=== PATIENT | female | born 1955 | race Caucasian/White ===

== ENCOUNTER 2018-02-09 17:42 | Emergency (ER) | payer MEDICAID, MEDICARE ==
--- NOTE | 2018-02-09 18:25 | ED Physician Documentation ---
PD HPI FOCAL NEURO - Stated complaint Stated Complaint: VISUAL CHANGES/DIZZY/UNBALANCED - Chief complaint Chief Complaint: Heent - History obtained from History obtained from: Patient - History of Present Illness Timing - onset: How many days ago (she has had few days of feeling off balance, dizziness, and some blurred vision. No loss of vision. No focal weaknesses. She is also having intermittent feelings of heart going fast with lightheadedness. No syncopal episodes per se. The lightheaded feelings last just few minutes at a time. They are not patterned with the dizziness times.) Timing - duration: Days (for the dizziness/vertigo feeling), Weeks (for the epiosdes of lightheaded/fast heartrate.) Timing - details: Abrupt onset, Now resolved, Intermittant Severity of deficit: Moderate Weakness: No: Face, Arm Numbness: No: Face, Arm Associated symptoms: Other (feeling of off balance and spinning/but not distinct vertigo per se.). No: Headache, Nausea / vomiting Contributing factors: negative: Anticoagulated, Vascular dz, Atrial fibrillation Baseline status: positive: A&OX3, ambulatory, indep Similar symptoms before: Has not had sx before Recently seen: Not recently seen Review of Systems Constitutional: denies: Fever, Chills Eyes: denies: Loss of vision, Decreased vision, Photophobia Ears: denies: Loss of hearing (but feels that her hearing is diminished.), Ear pain, Drainage/discharge Nose: denies: Rhinorrhea / runny nose, Congestion Cardiac: reports: Palpitations (feeling heart rate going fast about 130s, and she attributed it to anxiety from the symptoms.). denies: Chest pain / pressure PD PAST MEDICAL HISTORY - Past Medical History Past Medical History: No Cardiovascular: None Respiratory: None Neuro: None Endocrine/Autoimmune: None - Past Surgical History Past Surgical History: No - Present Medications Home Medications: Ambulatory Orders Medication Instructions Recorded Confirmed Cetirizine [ZyrTEC] 10 mg PO DAILY #20 tablet 02/09/18 Dexamethasone [Decadron] 4 mg PO DAILY #5 tablet 02/09/18 Meclizine [Antivert] 25 mg PO Q6H PRN #30 tablet 02/09/18 - Allergies Allergies/Adverse Reactions: Allergies Allergy/AdvReac Type Severity Reaction Status Date / Time codeine Allergy Unknown Verified 02/09/18 17:51 - Living Situation Living Situation: reports: With family Living Arrangement: reports: At home - Social History Does the pt smoke?: Yes Does the pt drink ETOH?: No Does the pt have substance abuse?: No PD ED PE NORMAL - Vitals Vital signs reviewed: Yes - General General: Alert and oriented X 3, No acute distress, Well developed/nourished - HEENT HEENT: PERRL, EOMI (mild nystagmus to the right and she says she can feel her eyes twich when follow EOMs. ) - Neck Neck: Supple, no meningeal sign, No adenopathy, Thyroid normal, No JVD, No bruit - Cardiac Cardiac: No murmur - Respiratory Respiratory: Clear bilaterally - Abdomen Abdomen: Soft, Non tender - Back Back: No CVA TTP - Derm Derm: Normal color, Warm and dry - Extremities Extremities: No tenderness to palpate, Normal ROM s pain - Neuro Neuro: Alert and oriented X 3, security installer 2-12 intact, No motor deficit, No sensory deficit, Normal speech Eye Opening: Spontaneous Motor: Obeys Commands Verbal: Oriented GCS Score: 15 - Psych Psych: Normal mood, Normal affect NIHSS - Level of Consciousness Level of consciousness: (0) Alert, Keenly responsive LOC Questions: (0) Answers both Q's correct LOC Commands: (0) Performs both correctly - Gaze Best Gaze: (0) Normal - Visual Visual: (0) No loss - Facial Palsy Facial Palsy: (0) Normal, symmetrical movement - Motor Arms (both separate) Motor Arm (right): (0) No drift Motor Arm (left): (0) No drift - Motor Legs (both separate) Motor Leg (right): (0) No drift Motor Leg (left): (0) No drift - Limb Ataxia Limb Ataxia: (0) Absent - Sensory Sensory: (0) Normal - Best Language Best Language: (0) No aphasia - Dysarthria Dysarthria: (0) Normal - Extinction and Inattention (formally neg Extinction and inattention: (0) No abnormality - Total Score/Results Total Score/Result: 0 Results - Vitals Vitals: Oxygen O2 Source Room air - EKG (time done) 19:11 Rate: Rate (enter#) (74) Rhythm: NSR [place]: Normal Intervals: Normal [place] QRS: Normal Ischemia: Normal ST segments. No: ST elevation c/w ischemia, ST depression - Labs Labs: Laboratory Tests 02/09/18 02/09/18 02/09/18 19:05 19:05 19:05 WBC 7.0 RBC 5.06 Hgb 15.0 Hct 44.9 MCV 88.7 MCH 29.7 MCHC 33.5 RDW 13.9 Plt Count 185 MPV 8.9 Neut # 4.0 Lymph # 2.3 [place] # 0.5 Eos # 0.1 Baso # 0.0 Absolute Nucleated RBC 0.00 Nucleated RBC % 0.0 ESR 1 Sodium 134 L Potassium 4.3 Chloride 100 L Carbon Dioxide 27 Anion Gap 7.0 BUN 20 Creatinine 0.8 Estimated GFR (MDRD) 73 L Glucose 94 Calcium 9.8 Magnesium 1.9 Total Bilirubin 0.3 AST 15 ALT 18 Alkaline Phosphatase 80 B-Natriuretic Peptide Total Protein 7.9 Albumin 4.5 Globulin 3.4 Albumin/Globulin Ratio 1.3 Lipase 20 L TSH 02/09/18 02/09/18 19:05 19:05 WBC RBC Hgb Hct MCV MCH MCHC RDW Plt Count MPV Neut # Lymph # [place] # Eos # Baso # Absolute Nucleated RBC Nucleated RBC % ESR Sodium Potassium Chloride Carbon Dioxide Anion Gap BUN Creatinine Estimated GFR (MDRD) Glucose Calcium Magnesium Total Bilirubin AST ALT Alkaline Phosphatase B-Natriuretic Peptide 21 Total Protein Albumin Globulin Albumin/Globulin Ratio Lipase TSH 2.23 - Rads (name of study) head CT Radiology: Prelim report reviewed, EMP read contemporaneously (no acute process) PD MEDICAL DECISION MAKING - ED course Complexity details: considered differential (her dizziness sounds peripheral and inner ear. Separately (?) she is having intermittent feeling sof heart rate racing and lightheaded for few minutes at a time. This has been longer term for weeks or more. ), d/w patient Departure - Departure Disposition: 01 Home, Self Care Clinical Impression: Dizziness, Near syncope Condition: Stable Record reviewed to determine appropriate education?: Yes Instructions: ED Near Syncope Unkn, ED Vertigo Unspecified Follow-Up: Kyleigh Mathews PA [Primary Care Provider] - Prescriptions: Cetirizine [ZyrTEC] 10 mg PO DAILY #20 tablet Dexamethasone [Decadron] 4 mg PO DAILY #5 tablet Meclizine [Antivert] 25 mg PO Q6H PRN #30 tablet PRN Reason: Vertigo Comments: Your scan and blood tests appear normal here. I presume the dizziness is related to inner ear problem and we will treated with a anti-inflammatory Decadron daily for 5 days and an antihistamine cetirizine daily for a week or so. Add meclizine every 6-8 hours if needed for dizziness. Regarding the episodes of lightheadedness and fast heart rate, follow-up with your primary care and if these episodes persist then they may need to set you up with a heart rhythm monitor that record to rhythm for a few days to see what the episodes look like. Drink lots of fluids. Follow-up with your primary care next week as scheduled. Discharge Date/Time: 02/09/18 21:07
[2018-02-09 19:15] LABS: BASOPHILS % (AUTO) 0.5 %; EOSINOPHILS # (AUTO) 0.1 10^3/uL (0.0-0.7); EOSINOPHILS % (AUTO) 2.1 %; LYMPHOCYTES # (AUTO) 2.3 10^3/uL (1.5-3.5); LYMPHOCYTES % (AUTO) 33.6 %; MEAN CORPUSCULAR HEMOGLOBIN 29.7 pg (27.0-31.0); MEAN CORPUSCULAR HGB CONC 33.5 g/dL (32.0-36.0); MEAN CORPUSCULAR VOLUME 88.7 fL (81.0-99.0); MEAN PLATELET VOLUME 8.9 fL (7.9-10.8); MONOCYTES # (AUTO) 0.5 10^3/uL (0.0-1.0); MONOCYTES % (AUTO) 6.6 %; NEUTROPHILS % (AUTO) 57.2 %; PLT - PLATELET COUNT 185 10^3/uL (130-450); RED BLOOD COUNT 5.06 10^6/uL (4.20-5.40); RED CELL DISTRIBUTION WIDTH 13.9 % (12.0-15.0)
[2018-02-09 19:29] LABS: ALBUMIN 4.5 g/dL (3.2-5.5); ALBUMIN/GLOBULIN RATIO 1.3 (1.0-2.2); BILIRUBIN,TOTAL 0.3 mg/dL (0.2-1.0); CALCIUM 9.8 mg/dL (8.5-10.3); CREATININE 0.8 mg/dL (0.4-1.0); MAGNESIUM 1.9 mg/dL (1.7-2.8); TOTAL PROTEIN 7.9 g/dL (6.7-8.2)
--- NOTE | 2018-02-09 19:58 | CT Report ---
EXAM: CT HEAD EXAM DATE: 02/09/2018 07:34 PM. CLINICAL HISTORY: Dizziness and off balance for few weeks. COMPARISON: None. TECHNIQUE: Multiaxial CT images were obtained from the foramen magnum to the vertex. Reformats: Coron al. IV contrast: None. In accordance with CT protocol optimization, one or more of the following dose reduction techniques w ere utilized for this exam: automated exposure control, adjustment of mA and/or KV based on patient s ize, or use of iterative reconstructive technique. FINDINGS: Parenchyma: No intraparenchymal hemorrhage. No evidence of mass, midline shift, or CT findings of inf arction. Henriquez-white differentiation is distinct. Extraaxial Spaces: Normal for age. No subdural or epidural collections identified. Ventricles: Normal in size and position. Sinuses and Orbits: There is a trace amount of fluid in the left maxillary sinus. Other sinuses appea r clear. Bones: No evidence of fracture or calvarial defect. Other: None. IMPRESSION: 1. Trace left maxillary sinus fluid or inflammatory disease. 2. Otherwise negative head CT. [facility] Referring Provider Line: [phone] SITE ID: [id number]
--- NOTE | 2018-02-09 19:58 | CT Preliminary Report ---
Exam: CT HEAD W/O IMPRESSION: 1. Trace left maxillary sinus fluid or inflammatory disease. 2. Otherwise negative head CT. [facility] SITE ID: [id number]
[2018-02-09] MEDS ORDERED: MECLIZINE 12.5 MG TABLET PO STA (20:54)
[2018-02-09] MEDS ORDERED: DEXAMETHASONE 10 MG/ML VIAL PO STA (20:54)
[2018-02-09 21:04] VITALS: BP 105/72
== END 2018-02-09 21:07 | disposition home or self-care (01) ==
LOC: ED 17:42
DX: R42 Dizziness and giddiness (principal); R55 Syncope and collapse
CPT/HCPCS: 36415; 70450; 80053; 83690; 83735; 83880; 84443; 85025; 85651; 93005; 99283; A9270

== ENCOUNTER 2018-03-12 08:24 | Outpatient (CLI) | payer MEDICARE ==
--- NOTE | 2018-03-15 16:59 | Ultrasound Report ---
ULTRASOUND ANKLE-BRACHIAL INDEX: 03/12/2018 COMPARISON: No comparison. INDICATION: Claudication bilaterally. TECHNIQUE: Real-time sonographic vascular imaging was performed by the salon manager through the the lower and upper extremity arteries for AYDEN utilizing both color-flow and Doppler flow analysis. Multiple termite control service representative static images were saved for review. FINDINGS 3 RIGHT SIDE SITE PSV WAVEFORM STEN TEST DESIGNER 40 biphasic -- PER -- -- -- DPA -- -- -- 3 LEFT SIDE SITE PSV WAVEFORM STEN TEST DESIGNER 53 biphasic -- PER -- -- -- DPA -- -- -- 3 SYSTOLIC PRESSURES RIGHT LEFT BRACHIAL ARTERY 115/77 122/76 POSTERIOR TIBIAL ARTERY 152/72 155/96 ANTERIOR TIBIAL ARTERY -- -- PERONEAL ARTERY -- -- ANKLE/ARM INDEX 1.32 1.27 IMPRESSION: NORMAL ANKLE-BRACHIAL INDEX BILATERALLY. TD: 03/12/2018 13:09 MTDD
--- NOTE | 2018-03-15 17:13 | Ultrasound Report ---
CAROTID DOPPLER ULTRASOUND: 03/12/2018 COMPARISON: No comparison. INDICATION: Syncope and exertional shortness of breath. TECHNIQUE: Real-time sonographic vascular imaging was performed by the hair salon manager through the carotid arteries utilizing both color-flow and Doppler spectral analysis. Multiple termite control representative static images were saved for review. FINDINGS No appreciable plaques are demonstrated. Following are peak systolic velocities in cm per second: RIGHT 3 Vessel PSV cm/sec EDV cm/sec ICA/CCA RSV Ratio Degree of Stenosis Plaque Estimate % RCCA Prox 81 -- -- RCCA Dist 80 19 -- RECA 76 -- -- RT BULB 53 19 0.66 JUDY Prox 49 21 0.61 JUDY Mid 53 1 0.66 JUDY Dist 41 14 0.51 RVA 47 -- -- RVA flow direction: Antegrade LEFT 3 Vessel PSV cm/sec EDV cm/sec ICA/CCA RSV Ratio Degree of Stenosis Plaque Estimate % LCCA Prox 83 -- -- LCCA Dist 70 26 -- LECA 81 -- -- LFT BULB 57 22 0.81 LICA Prox 62 15 0.88 LICA Mid 57 24 0.81 LICA Dist 71 31 1.0 LVA 45 -- -- LVA flow direction: Antegrade Velocity criteria are extrapolated from diameter data as defined by the Society of Radiologists in Ultrasound Consensus Conference Radiology 2003; 229; 340-346. 3 Degree of Stenosis % ICA PSV cm/sec ICA EDV cm/sec ICA/CCA PSV Ratio Plaque Estimate % Normal < 125 < 40 < 2.0 None <50 < 125 < 40 < 2.0 < 50 50-69 125-130 40-100 2.0-4.0 >/=50 >/=70 but less than near occlusion > 230 > 100 > 4.0 >/=50 Near occlusion High, low or undetectable Variable Variable Visible Total occlusion Undetectable Not applicable Not applicable No detectable lumen IMPRESSION: NEGATIVE CAROTID DOPPLER ULTRASOUND. TD: 03/12/2018 13:29 FABIANA
== END 2018-03-12 08:25 | disposition home or self-care (01) ==
LOC: DI 08:24
PROVIDERS: ATTEND Physician Assistant
DX: I73.9 Peripheral vascular disease, unspecified (principal); R06.9 Unspecified abnormalities of breathing; R55 Syncope and collapse
CPT/HCPCS: 93306; 93880; 93922

== ENCOUNTER 2018-03-25 13:12 | Outpatient (CLI) | payer MEDICARE ==
[2018-03-25 19:14] LABS: CHOL/HDL RATIO 3.8 (<4.4); CHOLESTEROL 191 mg/dL; HDL CHOLESTEROL 50 mg/dL; LDL CHOLESTEROL,CALCULATED 116 mg/dL; LDL/HDL RATIO 2.3 (<4.4); VLDL CHOLESTEROL 25 mg/dL
== END 2018-03-25 13:13 | disposition home or self-care (01) ==
LOC: LAB.WCP 13:12
PROVIDERS: ATTEND Physician Assistant
DX: Z00.00 Encounter for general adult medical examination without abnormal findings (principal); E66.9 Obesity, unspecified
CPT/HCPCS: 36415; 80061; 83721

== ENCOUNTER 2018-03-30 14:29 | Outpatient (CLI) | payer MEDICARE ==
[2018-03-30 19:56] LABS: RHEUMATOID FACTOR NEGATIVE (Negative)
[2018-03-30 20:00] LABS: HB2 TOTAL 16.6 g/dL; HEMOGLOBIN A1C 0.62 g/dL; HEMOGLOBIN A1C % 5.6 % (4.6-6.2)
[2018-04-01 19:46] LABS: ANA SCREEN POSITIVE (NEGATIVE)
== END 2018-03-30 14:30 ==
LOC: LAB.WCP 14:29
PROVIDERS: ATTEND Physician Assistant
DX: Z82.61 Family history of arthritis (principal); Z86.39 Personal history of other endocrine, nutritional and metabolic disease
CPT/HCPCS: 36415; 83036; 86038; 86039; 86430

== ENCOUNTER 2018-04-09 13:11 | Outpatient (CLI) | payer MEDICARE | END 2018-04-09 13:12 | disposition home or self-care (01) | LOC: LAB.WCP 13:11 | PROVIDERS: ATTEND Physician Assistant | DX: R76.0 Raised antibody titer (principal) | CPT/HCPCS: 36415; 86225 ==

== ENCOUNTER 2018-05-13 13:49 | Outpatient (CLI) | payer MEDICARE | END 2018-05-13 13:50 | disposition home or self-care (01) | LOC: DI 13:49 | PROVIDERS: ATTEND Physician Assistant | DX: Z53.9 Procedure and treatment not carried out, unspecified reason (principal) ==

== ENCOUNTER 2023-04-01 10:45 | Outpatient (CLI) | payer MEDICARE ==
[2023-04-01 18:08] LABS: BASOPHILS % (AUTO) 0.3 %; EOSINOPHILS # (AUTO) 0.2 10^3/uL (0.0-0.7); EOSINOPHILS % (AUTO) 2.3 %; HCT - HEMATOCRIT 49.4 % (37.0-47.0); HGB - HEMOGLOBIN 15.6 g/dL (12.0-16.0); LYMPHOCYTES % (AUTO) 29.2 %; MEAN CORPUSCULAR HEMOGLOBIN 28.5 pg (27.0-31.0); MEAN CORPUSCULAR HGB CONC 31.6 g/dL (32.0-36.0); MEAN CORPUSCULAR VOLUME 90.3 fL (81.0-99.0); MEAN PLATELET VOLUME 11.9 fL (7.9-10.8); MONOCYTES # (AUTO) 0.4 10^3/uL (0.0-1.0); MONOCYTES % (AUTO) 5.4 %; NEUTROPHILS # (AUTO) 4.3 10^3/uL (1.5-6.6); NEUTROPHILS % (AUTO) 62.4 %; PLT - PLATELET COUNT 193 10^3/uL (130-450); RED BLOOD COUNT 5.47 10^6/uL (4.20-5.40); WHITE BLOOD COUNT 6.9 x10^3/uL (4.8-10.8)
[2023-04-01 18:26] LABS: THYROID STIMULATING HORMONE 2.21 uIU/mL (0.34-5.60)
[2023-04-01 18:27] LABS: ALBUMIN 4.3 g/dL (3.2-5.5); ALBUMIN/GLOBULIN RATIO 1.2 (1.0-2.2); ALKALINE PHOSPHATASE 93 IU/L (42-121); ALT ALANINE AMINOTRANSFERASE 20 IU/L (10-60); AST ASPARTATE AMINOTRANSFERASE 14 IU/L (10-42); BILIRUBIN,TOTAL 0.5 mg/dL (0.2-1.0); BUN - BLOOD UREA NITROGEN 15 mg/dL (6-20); CALCIUM 9.4 mg/dL (8.5-10.3); CARBON DIOXIDE - CO2 29 mmol/L (21-32); CHLORIDE 104 mmol/L (101-111); CHOL/HDL RATIO 3.4 (<4.4); CHOLESTEROL 193 mg/dL; CREATININE 0.7 mg/dL (0.4-1.0); GFR - MDRD 84 (>89); GLUCOSE 102 mg/dL (70-100); HDL CHOLESTEROL 56 mg/dL; LDL CHOLESTEROL,CALCULATED 118 mg/dL; LDL/HDL RATIO 2.1 (<4.4); POTASSIUM 4.6 mmol/L (3.5-5.0); SODIUM 140 mmol/L (135-145); TOTAL PROTEIN 7.9 g/dL (6.7-8.2); TRIGLYCERIDES 93 mg/dL; VLDL CHOLESTEROL 19 mg/dL
[2023-04-01 18:33] LABS: RHEUMATOID FACTOR NEGATIVE (Negative)
[2023-04-01 18:49] LABS: CRP - C-REACTIVE PROTEIN < 1.0 mg/dL (0-1.0)
[2023-04-01 20:52] LABS: ESTIMATED AVERAGE GLUCOSE 126 mg/dL (70-100)
[2023-04-03 16:08] LABS: ANTI-DNA (DS) AB QN 5 IU/mL (0-9)
[2023-04-03 20:07] LABS: CYCLIC CITRULLINATED PEP IGG/A 4 units (0-19)
== END 2023-04-01 10:46 | disposition home or self-care (01) ==
LOC: LAB.N 10:45
PROVIDERS: ATTEND Nurse Practitioner
DX: M19.042 Primary osteoarthritis, left hand (principal); M19.041 Primary osteoarthritis, right hand; Z13.220 Encounter for screening for lipoid disorders; R53.83 Other fatigue; Z86.39 Personal history of other endocrine, nutritional and metabolic disease; R06.09 Other forms of dyspnea; R76.0 Raised antibody titer
CPT/HCPCS: 36415; 80053; 80061; 83036; 83721; 83880; 84443; 85025; 85651; 86038; 86140; 86200; 86225; 86235; 86430